=== PATIENT | female | born 1980 | race Caucasian/White ===

== ENCOUNTER 2019-11-29 15:45 | Emergency (ER) | payer SELFPAY ==
--- NOTE | 2019-11-29 16:04 | TELE ---
HPI Do you have fever,cough or shortness of breath?: No - General Reason For Visit: COVID Time Seen by Provider: 11/29/19 16:02 History Source: Patient Exam Limitations: No Limitations - History of Present Illness 11/29/19 16:02 [id number] female denies medical history telehealth visit for COVID-19 testing. She denies any sick contacts or symptoms at this time but is concerned that she has had potentially come in contact with a virus. CONSTITUTIONAL: Absent: fever, chills, diaphoresis, generalized weakness, malaise, loss of appetite HEENT: Absent: rhinorrhea, nasal congestion, throat pain, throat swelling, difficulty swallowing, mouth swelling, ear pain, eye pain, visual changes CARDIOVASCULAR: Absent: chest pain, loss of consciousness, palpitations, irregular heart rate, peripheral edema RESPIRATORY: Absent: cough, shortness of breath, dyspnea with exertion, orthopnea, wheezing, stridor, hemoptysis GASTROINTESTINAL: Absent: abdominal pain, abdominal distension, nausea, vomiting, diarrhea SKIN: Absent: rash, itching, pallor NEUROLOGIC: Absent: headache, focal weakness or paresthesias, dizziness, unsteady gait, seizure, mental status changes, bladder or bowel incontinence PSYCHIATRIC: Absent: anxiety, depression, suicidal or homicidal ideation, hallucinations. GENERAL: Well developed, well nourished. Awake and alert. No acute distress. HEENT: Normocephalic, atraumatic. PERRLA, EOMI. NECK: Supple. Full ROM. PULMONARY: No evidence of respiratory distress. EXTREMITIES: No cyanosis. SKIN: Warm and dry. Normal capillary refill. No rashes. No jaundice. NEUROLOGICAL: Alert, awake, appropriate. PSYCHIATRIC: Cooperative. Good eye contact. Appropriate mood and affect. - Medical Decision Making 11/29/19 16:03 A/P: 39-year-old woman requesting COVID-19 testing COVID-19 testing ordered Patient counseled for COVID-19 Discharged Portions of this note have been documented using voice recognition software. As a result, errors may occur in the booster station operator process. Effort has been made to correct all grammatical and booster station operator error, but some may have been missed which may produce sporadic inaccurate booster station operator or nonsensical phrases. Discharge Diagnosis at time of Disposition: Counseled about COVID-19 virus infection - Referrals - Patient Instructions Additional Discharge Instructions: You were tested for COVID today. Please isolate yourself until your test results come back. Guidance has been provided in your discharge papers You should receive a call within 24 to 48 hours from our department with your results. Thank you for using our telehealth service today! - Discharge Disposition: HOME Condition at time of Disposition: Stable
== END 2019-11-29 16:04 | disposition home or self-care (01) ==
LOC: JVIRT 15:45
DX: Z03.818 Encounter for observation for suspected exposure to other biological agents ruled out (principal)
CPT/HCPCS: C9803; Q3014-GT; U0003